=== PATIENT | female | born 1970 | race Caucasian/White ===

== ENCOUNTER 2018-03-28 16:20 | Outpatient (CLI) | payer BC | END 2018-03-28 16:21 | disposition home or self-care (01) | LOC: BICMAMMO 16:20 | PROVIDERS: ATTEND Family Medicine | DX: Z12.31 Encounter for screening mammogram for malignant neoplasm of breast (principal); Z80.3 Family history of malignant neoplasm of breast | CPT/HCPCS: 77063; 77067 ==

== ENCOUNTER 2018-05-16 06:47 | Outpatient (CLI) | payer BC ==
--- NOTE | 2018-05-16 07:55 | ULT ---
PELVIC ULTRASOUND: HISTORY: Menorrhagia. TECHNIQUE: Multiplanar, nazario scale, and color Doppler images were obtained in a transabdominal and transvaginal pelvic ultrasound. Spectral analysis of the Doppler waveforms of the ovaries was performed. FINDINGS: There is a small nabothian cyst in the cervix. The uterus is normal in size and appearance without f ocal abnormality.. A small amount of fluid is seen within the endometrium. Endometrial stripe is up per limits of normal in size measuring 10 mm. No free fluid is seen in the pelvis. Both ovaries are normal in size and appearance and demonstrate normal internal flow. IMPRESSION: Nabothian cyst; otherwise, unremarkable exam. POS: [facility]
== END 2018-05-16 06:48 | disposition home or self-care (01) ==
LOC: BICULT 06:47
PROVIDERS: ATTEND Family Medicine
DX: N92.0 Excessive and frequent menstruation with regular cycle (principal); N88.8 Other specified noninflammatory disorders of cervix uteri
CPT/HCPCS: 76856

== ENCOUNTER 2023-07-02 16:00 | Outpatient (CLI) | payer BC | END 2023-07-02 16:01 | disposition home or self-care (01) | LOC: SLEEPLAB 16:00 | PROVIDERS: ATTEND Family Medicine | DX: G47.33 Obstructive sleep apnea (adult) (pediatric) (principal); G47.10 Hypersomnia, unspecified; G47.00 Insomnia, unspecified; E66.9 Obesity, unspecified; R40.0 Somnolence; R06.83 Snoring; R53.83 Other fatigue | CPT/HCPCS: 95811 ==